=== PATIENT | female | born 1950 | race Caucasian/White ===

== ENCOUNTER → 2023-08-24 12:25 | Outpatient (REF) | payer MEDICARE, OTHER, SELFPAY | LOC: RAD 12:25 | PROVIDERS: ATTENDING PHYSICIAN Surgery Vascular Surgery; FAMILY PHYSICIAN Family Medicine | DX: I77.1 Stricture of artery (principal) | CPT/HCPCS: 93931 ==

== ENCOUNTER → 2023-12-26 10:53 | Outpatient (REF) | payer MEDICARE, OTHER, SELFPAY | LOC: RAD 10:53 | PROVIDERS: ATTENDING PHYSICIAN Surgery Vascular Surgery | DX: I77.1 Stricture of artery (principal) | CPT/HCPCS: 93931 ==

== ENCOUNTER 2024-01-17 07:56 | Day surgery (SDC) | payer MEDICARE, OTHER, SELFPAY ==
[2024-01-17] VITALS (15 sets, daily range): BP systolic 126–155; BP diastolic 57–72; BMI 32.7
[2024-01-17 09:03] LABS: Hematocrit 36.4 % (37.0-47.0); Hemoglobin 12.4 g/dL (12.0-16.0); Mean Corp Hgb Conc. 34.1 g/dL (33.0-37.0); Mean Corpuscular Hgb 30.6 pg (27.0-31.0); Mean Corpuscular Volume 89.9 fL (81.0-99.0); Mean Platelet Volume 10.8 fL (7.4-10.4); Platelet Count 148 10^3/uL (130-400); Red Blood Cell Count 4.05 10^6/uL (4.20-5.40); Red Cell Dist. Width 12.2 % (11.5-14.5); White Blood Cell Count 6.5 10^3/uL (4.8-10.8)
[2024-01-17 09:15] LABS: INR 1.02; PT 13.4 Sec (11.4-14.6)
[2024-01-17 09:16] LABS: APTT 56.5 Sec (23.4-35.0)
[2024-01-17 09:23] LABS: Blood Urea Nitrogen 18 mg/dl (7-17); Calcium 9.1 mg/dl (8.4-10.2); Carbon Dioxide 24 mmol/L (22-30); Chloride 104 mmol/L (98-107); Estimated Creatinine Clearance 61 ml/min; Glucose 112 mg/dl (70-99); Potassium 4.1 mmol/L (3.5-5.1); Sodium 140 mmol/L (135-145); eGFR > 60.00
--- NOTE | 2024-01-17 09:55 | W.SUR.PREOP ---
Pre-Operative Surgical Note
-
I have examined this patient prior to the performance of the scheduled procedure.
The patient's condition is unchanged from the time of the current History and
Physical and the patient is able to undergo the scheduled procedure.
--- NOTE | 2024-01-17 11:04 | W.DS.TRANS ---
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
-
Discharge Instructions:
Discharge Diagnosis/Procedures Left subclavian stenosis
Diet As tolerated
Activity No strenuous activity
Driving Restrictions No driving for 24 hours
Bathing Restrictions OK to Shower
Others Tests Your ultrasound follow up is schedule on 03/01/24
at 1pm here at [facility]
Instructions:
Stand-Alone Forms: DC Instr - Vascular OR
Changes to Home Medications: Yes
Discharge Medications:
DC Medications w/original date entered in [facility] [employer]
Probiotic 1 cap PO DAILY Supplement 12/20/22
amlodipine 5 mg tablet (Norvasc) 5 mg PO BID Blood Pressure 12/20/22
cranberry extract 200 mg capsule (Ellura) 200 mg PO DAILY Supplement 12/20/22
flecainide 50 mg tablet 50 mg PO Q12H Heart Disease/Condition 12/20/22
labetalol 300 mg tablet 400 mg PO BID Blood Pressure 12/20/22
omeprazole 40 mg capsule,delayed release 40 mg PO DAILY Gastrointestinal Issue 12/20/22
aspirin 81 mg chewable tablet 81 mg PO DAILY #90 tabs 12/21/22
calcium carbonate (Calcium 600) 600 mg PO DAILY Gastrointestinal Issue 12/21/22
cholecalciferol (vitamin D3) 50 mcg (2,000 unit) capsule (Vitamin D3) 2,000 unit PO DAILY Supplement 12/21/22
clopidogrel 75 mg tablet 75 mg PO DAILY #90 tabs 01/17/24
Home Medication Changes
Added plavix
Pending Results: No
--- NOTE | 2024-01-17 11:41 | W.SUR.POST ---
Surgical Immediate Post Op
Note
Pre Op Diagnosis: Left subclavian stenosis
Post Op Diagnosis: Left subclavian stenosis
Procedure Performed: LUE arteriogram, SCRAPER TENDER and placement of covered stent 6mm gore VBX left subclavia artery
Primary Surgeon: Trent Cooper MD
Secondary Surgeons: N/A
Anesthesia: MAC
Estimated Blood Loss: 2ml
Fluids: See anesthesia flow sheet
Drains/Shunts: N/A
Specimens/Cultures: N/A
Doppler/Duplex/Angio (Y/N): Y
Complications: None
Operative Findings: Successful endovascular intervention
[2024-01-17] MEDS: PLAVIX 300 MG PO (12:41)
--- NOTE | 2024-01-17 13:07 | OR.RPT ---
Operative Report
Operative Report
PROCEDURE DATE: 01/17/2024
Preoperative diagnosis:
1. Left upper extremity ischemic rest pain.
2. Recurrent left subclavian artery stenosis/in-stent stenosis.
Postoperative diagnosis: Same
Procedure:
1. Duplex assisted right common femoral artery cannulation.
2. Arch aortography.
3. Selective catheterization of left subclavian, axillary, brachial artery via right common femoral artery cannulation.
4. Balloon angioplasty of severe in-stent restenosis left subclavian/axillary artery stenosis.
5. Placement of covered stent left subclavian/axillary artery with [place] VBX 6 mm x 19 mm balloon mounted stent.
6. Right femoral angiogram and percutaneous Pro-glide closure right common femoral artery.
Surgeon: Kenneth
Concrete Spreader: None
Complications: None
Anesthesia: Local, sedation
Indications for procedure:
Recurrent ischemic rest pain like symptoms in the left hand. In-stent restenosis noted on duplex. Risk/benefit/alternatives of angiography discussed with patient. She understood all wish to proceed.
Description of procedure:
Patient was identified, brought to the operating room. Placed on the table in the supine position. After the adequate administration of anesthesia, the patient was prepped and draped in the standard surgical fashion. A standard preoperative
timeout was undertaken and everybody was in agreement with the plan.
The right common femoral artery was accessed with a micropuncture kit under direct duplex ultrasound guidance. A 6 Hungarian sheath was then advanced over a 0.035 inch wire, and a pigtail catheter was inserted over the wire and advanced into the
aortic arch and then the ascending aorta. The patient was given 6000 units of intravenous heparin. Next, arch aortography was performed. This demonstrated patent aortic arch and patent great vessels. There appeared to be bovine arch
configuration. Next, using a flopping of hydrophilic wire and a glide catheter, I selectively cannulated the left subclavian artery. I advanced my catheter. Left subclavian angiography demonstrated patent left subclavian artery and vertebral
artery. The left subclavian/axillary stent was patent but appeared to have severe in-stent restenosis with string-like stenosis in the distal aspect of the stent. There was patent flow distal to here. Next I selectively cannulated the axillary
and then brachial artery with a flopping on hydrophilic wire. I could not advance my glide catheter. I therefore tried exchanging for a CXI catheter which would not advance as well. I then tried with a quick cross catheter and this would not
advance as well. Therefore I withdrew my wire out maintaining catheter access in the stent itself. I then used a stiff angled hydrophilic Glidewire. I was able to cannulate the brachial artery with this wire and then over this wire was able to
easily pass the quick cross catheter. Next I exchanged for a [employer] wire. I then passed a 6 Hungarian 70 cm sheath into the left subclavian artery. Angiography was performed confirming the stenosis. I now angioplastied the area of stenosis with a 4
mm x 2 cm angioplasty balloon to predilate the stenosis. I then advance my sheath over the balloon as I deflated the balloon. I then withdrew the balloon catheter and then exchanged for a [place] VBX 6 mm x 19 mm covered stent. I position the stent
and then withdrew my sheath. I then balloon this stent into place. Completion angiogram demonstrated excellent result with no residual stenosis and brisk filling distally. Good filling of the more proximal vessels including the vertebral artery
as well were noted. At this point I was very satisfied. I withdrew my sheath and wire out of the subclavian artery. Sheath was withdrawn to the right external iliac artery. Angiogram demonstrated good puncture in the right common femoral artery.
Therefore I used a Pro-glide percutaneous suture to close the common femoral artery as the sheaths and wires were withdrawn. Hemostasis was achieved but manual pressure was also applied for several minutes to confirm hemostasis. The patient
tolerated the procedure well. Upon completion she had a 2+ palpable right DP pulse and 2+ palpable left radial pulse.
[2024-01-17] MEDS: TYLENOL 650 MG PO (13:09)
--- NOTE | 2024-02-01 11:05 | W.DCSUMMARY ---
Discharge Summary
Discharge Data
Date of Admission: 01/17/24
Date of Discharge: 01/17/24
-
Pending Results: No
Hospital Course
Attending: Kenneth
Consultants: None
Allergies: adhesive, lisinopril
Procedure with date: 01/17/2024: Arch aortography, balloon angioplasty of severe in-stent restenosis left subclavian/axillary artery, placement of covered stent left subclavian/axillary artery with [place] VBX
History of present illness: The patient is an 73-year-old female with multiple medical conditions including: Hypertension, breast cancer, pulmonary embolism, interstitial cystitis, UTI, hearing loss, cystic kidney, left lower extremity DVT, chronic
small airway disease, hysterectomy, lumpectomy, mastectomy, cholecystectomy, left stent subclavian artery/axillary artery junction in 2022. Patient presented on 01/17/2024 for scheduled procedure with Dr. Cooper. Patient presented at [facility]
with no reports of recent illness or trauma.
Hospital Course: Briefly, the patient underwent scheduled subclavian stent without complications, and recovered in PACU. Following recovery phase one and two patient was transferred to the floor for continued monitoring. Patient did well throughout
recovery phase and was later discharged home.
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 All instructions were given to the patient in both written and verbal form and the patient expressed understanding.
Discharge Plan
-
Patient Disposition: Home (Routine Discharge)
Discharge Diagnosis/Procedures: Left subclavian stenosis
Condition: Good
Diet: As tolerated
Activity: No strenuous activity
Driving Restrictions: No driving for 24 hours
Bathing Restrictions: OK to Shower
Others Tests: Your ultrasound follow up is schedule on 03/01/24 at 1pm here at [facility]
Stand Alone Forms: DC Instr - Vascular OR
Referrals:
Trent Cooper MD [Active] - 02/06/24 1:30 pm
UNKNOWN - PT DOES,NOT KNOW [Family Provider] -
Prescriptions:
New
clopidogrel 75 mg Tablet
75 mg PO DAILY Qty: 90 0RF
Continued
amlodipine [Norvasc] 5 mg Tablet
5 mg PO BID
omeprazole 40 mg Capsule,Delayed Release(Dr/Ec)
40 mg PO DAILY
flecainide 50 mg Tablet
50 mg PO Q12H
labetalol 300 mg Tablet
400 mg PO BID
cranberry extract [Ellura] 200 mg Capsule
200 mg PO DAILY
Probiotic
1 cap PO DAILY
calcium carbonate [Calcium 600] 600 mg calcium (1,500 mg) Tablet
600 mg PO DAILY
cholecalciferol (vitamin D3) [Vitamin D3] 50 mcg (2,000 unit) Capsule
2,000 unit PO DAILY
Rx Instructions:
drops
aspirin 81 mg Tablet,Chewable
81 mg PO DAILY Qty: 90 0RF
Discharge Orders:
Discharge Patient (As Directed); Ordered 01/17/24
Ordered By: Rose Lee
Discharge Date and Time
Discharge Date/Time: 01/17/24 15:35
Print Language: Turkmen
== END 2024-01-17 15:35 | disposition home or self-care (01) | DRG 254 ==
LOC: CATH 07:56
PROVIDERS: ATTENDING PHYSICIAN Surgery Vascular Surgery
PROC: 03743DZ Dilation of Left Subclavian Artery with Intraluminal Device, Percutaneous Approach (ICD-10-PCS; 2024-01-17)
DX: T82.856A Stenosis of peripheral vascular stent, initial encounter (principal); I10 Essential (primary) hypertension; I77.1 Stricture of artery; N30.10 Interstitial cystitis (chronic) without hematuria; Z79.82 Long term (current) use of aspirin; Z79.899 Other long term (current) drug therapy; Z85.3 Personal history of malignant neoplasm of breast; Z86.711 Personal history of pulmonary embolism; Z88.8 Allergy status to other drugs, medicaments and biological substances; Y83.1 Surgical operation with implant of artificial internal device as the cause of abnormal reaction of the patient, or of later complication, without mention of misadventure at the time of the procedure
CPT/HCPCS: 36217; 37236; 36225; C1725; C1769; C1894; C1887; 75710; 80048; 85027; 85610; 85730; 86850; 86900; 86901; 93005; C1760; Q9967

== ENCOUNTER → 2024-03-01 12:47 | Outpatient (REF) | payer MEDICARE, OTHER, SELFPAY | LOC: RAD 12:47 | PROVIDERS: ATTENDING PHYSICIAN Surgery Vascular Surgery | DX: I77.1 Stricture of artery (principal) | CPT/HCPCS: 93931 ==

== ENCOUNTER → 2024-08-02 13:10 | Outpatient (REF) | payer MEDICARE, OTHER, SELFPAY | LOC: RAD 13:10 | PROVIDERS: ATTENDING PHYSICIAN Surgery Vascular Surgery | DX: I77.1 Stricture of artery (principal) | CPT/HCPCS: 93931 ==